=== PATIENT | male | born 1985 | race Caucasian/White ===

== ENCOUNTER 2018-03-08 08:33 | Emergency (ER) | payer MEDICARE, OTHER ==
[~2018-03-08] VITALS: Ht 182.9 cm; Wt 97.5 kg
[~2018-03-08 08:33] MED LIST: CARB100ER PO; Cleocin HCl300 MG PO; HYDACE5 PO; KETO10 PO; LAMO100; OXCA300; PHENY100ER; PHENY100ER PO; Veetids 500500 MG PO
[2018-03-08] MEDS ORDERED: OXCA300 PO (08:46)
[2018-03-08] MEDS ORDERED: Keflex500 MG PO (08:56)
== END 2018-03-08 09:15 | disposition home or self-care (01) ==
LOC: ER 08:33
DX: S61.211A Laceration without foreign body of left index finger without damage to nail, initial encounter (principal); G40.909 Epilepsy, unspecified, not intractable, without status epilepticus; Z23 Encounter for immunization; Z79.899 Other long term (current) drug therapy; Z87.891 Personal history of nicotine dependence; W26.0XXA Contact with knife, initial encounter
CPT/HCPCS: 90714; 96372; 99283

== ENCOUNTER 2021-12-28 10:42 | Emergency (ER) | payer MEDICARE, OTHER ==
[~2021-12-28] VITALS: Ht 182.9 cm; Wt 111.1 kg
[~2021-12-28 10:42] MED LIST changes: +Keflex500 MG PO; +OXCA300 PO; +Zofran4 MG PO
[2021-12-28] MEDS ORDERED: Prinivil10 MG PO (10:58)
[2021-12-28] MEDS ORDERED: [UNRECOGNIZED DRUG - CODE] PO (10:58)
[2021-12-28] MEDS ORDERED: ZONI100 PO (10:59)
== END 2021-12-28 12:43 | disposition home or self-care (01) ==
LOC: ER 10:42
DX: M53.3 Sacrococcygeal disorders, not elsewhere classified (principal); V13.4XXA Pedal cycle driver injured in collision with car, pick-up truck or van in traffic accident, initial encounter; Y93.55 Activity, bike riding; Z87.891 Personal history of nicotine dependence
CPT/HCPCS: 72220; J1885

== ENCOUNTER 2023-06-26 08:14 | Emergency (ER) | payer MEDICARE, OTHER ==
[~2023-06-26] VITALS: Ht 182.9 cm; Wt 106.6 kg
[~2023-06-26 08:14] MED LIST changes: +Prinivil10 MG PO; +ZONI100 PO; +[UNRECOGNIZED DRUG - CODE] PO
[2023-06-26 08:59] LABS: BASOPHILS ABSOLUTE AUTO 0.03 K/mm3 (0.00-0.23); BASOPHILS PERCENT AUTO 0 % (0-2); EOSINOPHILS ABSOLUTE AUTO 0.02 K/mm3 (0.00-0.68); EOSINOPHILS PERCENT AUTO 0 % (0-6); Hematocrit 42.5 % (37.0-53.0); Hemoglobin 14.6 g/dL (13.5-17.5); IMMATURE GRAN ABSOLUTE AUTO 0.02 K/mm3 (0.00-0.10); IMMATURE GRAN PERCENT AUTO 0 % (0-1); LYMPHOCYTES ABSOLUTE AUTO 1.89 K/mm3 (0.84-5.20); LYMPHOCYTES PERCENT AUTO 24 % (21-46); MONOCYTES PERCENT AUTO 5 % (4-13); Mean Corpuscular HGB 31.1 pg (26.0-34.0); Mean Corpuscular HGB Conc 34.4 g/dL (31.5-36.5); Mean Corpuscular Volume 90 fL (80-100); Mean Platelet Volume 11.8 fL (9.1-12.4); NEUTROPHILS ABSOLUTE AUTO 5.38 K/mm3 (1.96-9.15); NEUTROPHILS PERCENT AUTO 69 % (41-73); Platelet Count 209 K/mm3 (150-400); RDW Coefficient Variation 12.4 % (11.7-14.2); RDW Standard Deviation 41.1 fL (35.1-46.3); White Blood Cell Count 7.74 K/mm3 (4.00-11.30)
[2023-06-26 09:00] VITALS: BP 151/98
[2023-06-26 09:14] LABS: Alanine Aminotransfer (ALT/SGP 42 U/L (12-78); Albumin, Blood 4.6 g/dL (3.4-5.0); Albumin/Globulin Ratio 1.2 (0.8-1.8); Alk Phos 101 U/L (50-136); Anion Gap 4 mmol/L (6-16); Aspartate Aminotrans (AST/SGOT 24 U/L (12-37); Bilirubin, Total 0.4 mg/dL (0.1-1.0); Blood Urea Nitrogen 15 mg/dL (8-24); Bun/Creatinine Ratio 13.8 (12.0-20.0); C-REACTIVE PROTEIN, EXT RANGE <0.290 mg/dL (0.000-0.300); CO2, Blood 22 mmol/L (21-32); Calcium, Blood 8.8 mg/dL (8.5-10.1); Chloride, Blood 112 mmol/L (98-108); Creatinine, Blood 1.09 mg/dL (0.60-1.20); Globulin, Blood 3.7 g/dL (2.2-4.0); Glomerular Filtration Rate 90 (60-); Glucose, Blood 104 mg/dL (70-99); Magnesium, Blood 2.1 mg/dL (1.6-2.4); Sodium, Blood 138 mmol/L (136-145); Total Protein, Blood 8.3 g/dL (6.4-8.2)
[2023-06-26] MEDS ORDERED: Neurontin 300300 MG PO (11:42)
== END 2023-06-26 11:48 | disposition home or self-care (01) ==
LOC: ER 08:14
PROVIDERS: Physician Assistant
DX: M54.12 Radiculopathy, cervical region (principal); Z79.899 Other long term (current) drug therapy; G40.909 Epilepsy, unspecified, not intractable, without status epilepticus; Z87.891 Personal history of nicotine dependence
CPT/HCPCS: 72125; 80053; 83735; 85025; 86140; 96374; 96375; 99283-25; A9270; J1170; J1885

== ENCOUNTER 2025-06-07 16:17 | Emergency (ER) | payer OTHER, MEDICARE ==
[~2025-06-07] VITALS: Ht 182.9 cm; Wt 92.5 kg
[~2025-06-07 16:17] MED LIST changes: +Neurontin 300300 MG PO
[2025-06-07] MEDS ORDERED: AMOCLA875 PO (17:55)
[2025-06-07 18:08] VITALS: BP 147/91
== END 2025-06-07 18:09 | disposition home or self-care (01) ==
LOC: ER 16:17
DX: S62.634A Displaced fracture of distal phalanx of right ring finger, initial encounter for closed fracture (principal); Z79.2 Long term (current) use of antibiotics; Z79.899 Other long term (current) drug therapy; W54.0XXA Bitten by dog, initial encounter
CPT/HCPCS: 12002; 73130; 90471; 90715; 99283-25; A9270